=== PATIENT | female | born 1980 | race Caucasian/White ===

== ENCOUNTER 2017-05-12 19:21 | Emergency (ER) | payer OTHER ==
[~2017-05-12] VITALS: Ht 165.1 cm; Wt 113.4 kg
[~2017-05-12 19:21] MED LIST: CREON1 EC1 PO; LIO10 PO; MSIR15 PO; ZOC20 PO; [UNRECOGNIZED DRUG - CODE] PO
[2017-05-12 20:09] LABS: BASOPHIL % 0.5 % (0-2); PLATELET COUNT 219 x10^3mcL (130-400); RED CELL DISTRIBUTION WIDTH 13.3 % (11.5-14.5)
[2017-05-12 20:16] LABS: CALCIUM 8.3 mg/dL (8.5-10.1); CARBON DIOXIDE 24.2 mmol/L (21-32); CHLORIDE SERUM 106 mmol/L (98-107); CREATININE SERUM 0.8 mg/dL (0.6-1.0); GFR1 > 60 mL/min; GLUCOSE SERUM 95 mg/dL (74-106); POTASSIUM SERUM 3.4 mmol/L (3.5-5.1); SODIUM SERUM 140 mmol/L (136-145)
[2017-05-12 20:27] VITALS: BP 153/94
== END 2017-05-12 20:13 | disposition short-term general hospital (02) ==
LOC: ED 19:21
PROVIDERS: Emergency Medicine
DX: S11.81XA Laceration without foreign body of other specified part of neck, initial encounter (principal); Z88.6 Allergy status to analgesic agent; Z87.19 Personal history of other diseases of the digestive system; X99.1XXA Assault by knife, initial encounter; Y93.89 Activity, other specified; Y99.8 Other external cause status; Y92.410 Unspecified street and highway as the place of occurrence of the external cause
CPT/HCPCS: J2270; J7030

== ENCOUNTER 2019-04-20 20:30 | Emergency (ER) | payer OTHER ==
[~2019-04-20] VITALS: Ht 165.1 cm; Wt 124.7 kg
[2019-04-20 20:43] VITALS: Ht 165.1 cm; Wt 124.7 kg
[2019-04-21 00:40] VITALS: BP 152/72
== END 2019-04-21 00:40 | disposition home or self-care (01) ==
LOC: ED 20:30
DX: M54.42 Lumbago with sciatica, left side (principal); M54.41 Lumbago with sciatica, right side; F41.9 Anxiety disorder, unspecified; G89.29 Other chronic pain; Z98.890 Other specified postprocedural states; Z98.51 Tubal ligation status; Z88.8 Allergy status to other drugs, medicaments and biological substances
CPT/HCPCS: J1885; J3010